=== PATIENT | female | born 1940 | race Caucasian/White ===

== ENCOUNTER 2021-01-29 09:13 | Observation (INO) ==
[2021-01-29] MEDS ORDERED: 0.9 % Sodium Chloride 1,000 ML IVC ONE (09:48)
[2021-01-29 10:30] LABS: Bilirubin,Urine Negative (Negative); Blood,Urine Negative (Negative); Clarity,Urine Clear (Clear); Color,Urine Light-Yellow (Yellow); Glucose,Urine (UA) Normal (Normal); Ketones,Urine Negative (Negative); Leukocyte Esterase,Urine Negative (Negative); Nitrite,Urine Negative (Negative); Protein,Urine Negative (Neg-Trace); Specific Gravity,Urine 1.008 (1.010-1.025); Urobilinogen,Urine Normal (Normal)
[2021-01-29 10:50] LABS: Basophils % 0.3 %; Eosinophils % 0.1 %; Hematocrit 37.4 % (35.3-44.9); Hemoglobin 12.5 g/dL (11.5-15.4); Immature Granulocytes % 0.5 % (0-4); Lymphocytes # 1.3 K/mcL (0.6-4.6); Mean Corpuscular HGB Conc 33.4 g/dL (31.6-35.5); Mean Corpuscular Hemoglobin 28.6 pg (28.0-33.3); Mean Corpuscular Volume 85.6 fL (83.0-100.0); Mean Platelet Volume 9.9 fL (9.4-12.4); Monocytes # 0.7 K/mcL (0.0-1.3); Monocytes % 8.5 %; Neutrophils # 5.8 K/mcL (1.6-8.9); Platelet Count 250 K/mcL (140-400); Red Blood Count 4.37 M/mcL (3.82-4.97); Red Cell Distribution Width 17.4 % (11.5-14.5); Segmented Neutrophils % 73.6 %; White Blood Count 7.9 K/mcL (4.3-11.1)
[2021-01-29 11:17] LABS: Alanine Aminotransferase 39 Units/L (7-52); Albumin/Globulin Ratio 2.2 (1.1-2.2); Alkaline Phosphatase 64 Units/L (34-104); Aspartate Amino Transferase 49 Units/L (13-39); BUN/Creatinine Ratio 19 (6-26); Bilirubin,Direct 0.5 mg/dL (0.0-0.2); Bilirubin,Indirect 0.9 mg/dL (0.0-1.0); Bilirubin,Total 1.4 mg/dL (0.3-1.0); Blood Urea Nitrogen 14 mg/dL (8-23); Carbon Dioxide 31 mEq/L (23-29); Chloride 84 mEq/L (98-107); Globulin 1.8 g/dL (2.4-3.5); Glucose 112 mg/dL (70-105); Magnesium 1.4 mg/dL (1.6-2.6); Osmolality,Calculated 271 (280-300); Potassium 2.6 mEq/L (3.5-5.1); Sodium 130 mEq/L (136-145); Total Protein 5.8 g/dL (6.4-8.9); Troponin I 0.03 ng/mL (< 0.04); eGFR For African Americans > 60 (> 60); eGFR For Non-African Americans > 60 (> 60)
[2021-01-29] MEDS ORDERED: Potassium Chloride Elixir 20 MEQ/15 ML UDC PO ONE (12:01)
[2021-01-29] MEDS ORDERED: Potassium Chloride 40 MEQ, Lidocaine 1% 2 ML in 0.9 % Sodium Chloride 500 ML IVPB ONE (13:30)
[2021-01-29] MEDS ORDERED: Naloxone 0.4 MG/ML INJ IVP PRN (16:32)
[2021-01-29] MEDS ORDERED: Ondansetron ODT 4 MG TAB.RAPDIS SL PRN (16:32)
[2021-01-29] MEDS ORDERED: *HR* Dextrose 50 % in Water (Syg) 50 ML SYRINGE IVP PRN (16:35)
[2021-01-29] MEDS ORDERED: Dextrose Gel 15 GM/37.5 ML TUBE PO PRN ×2 (16:35)
[2021-01-29] MEDS ORDERED: D5% in Water 1,000 ML IVC PRN (16:35)
[2021-01-29] MEDS: Insulin LISPRO 300 UNITS/3 ML VIAL SUBQ SCH ×2 (17:50→20:28)
[2021-01-29] MEDS ORDERED: traZODone 50 MG TABLET PO PRN (18:44)
[2021-01-29] MEDS: Famotidine 20 MG TABLET PO SCH (20:28)
[2021-01-29] MEDS: Apixaban 5 MG TABLET PO SCH (20:28)
[2021-01-29] MEDS: *HR* OxyCODONE/APAP 5/325 TABLET PO PRN (20:31)
[2021-01-29] MEDS ORDERED: *HR* OxyCODONE/APAP 5/325 TABLET PO ONE (22:20)
[2021-01-30 06:18] LABS: Basophils % 0.2 %; Eosinophils % 0.1 %; Hematocrit 36.4 % (35.3-44.9); Hemoglobin 11.7 g/dL (11.5-15.4); Immature Granulocytes % 0.5 % (0-4); Lymphocytes # 1.7 K/mcL (0.6-4.6); Lymphocytes % 16.5 %; Mean Corpuscular HGB Conc 32.1 g/dL (31.6-35.5); Mean Corpuscular Hemoglobin 27.3 pg (28.0-33.3); Mean Platelet Volume 11.3 fL (9.4-12.4); Monocytes % 9.7 %; Neutrophils # 7.7 K/mcL (1.6-8.9); Platelet Count 248 K/mcL (140-400); Red Blood Count 4.28 M/mcL (3.82-4.97); Red Cell Distribution Width 17.9 % (11.5-14.5); White Blood Count 10.6 K/mcL (4.3-11.1)
[2021-01-30] MEDS: *HR* OxyCODONE/APAP 5/325 TABLET PO PRN ×2 (08:14→21:06)
[2021-01-30] MEDS: Apixaban 5 MG TABLET PO SCH ×2 (08:14→21:06)
[2021-01-30] MEDS: Furosemide 40 MG TABLET PO SCH (08:14)
[2021-01-30] MEDS: Famotidine 20 MG TABLET PO SCH ×2 (08:14→21:07)
[2021-01-30] MEDS: lisinopriL 5 MG TABLET PO SCH (08:14)
[2021-01-30] MEDS: Insulin LISPRO 300 UNITS/3 ML VIAL SUBQ SCH ×4 (08:24→20:54)
[2021-01-30] MEDS ORDERED: FLUoxetine 20 MG CAPSULE PO SCH (09:00)
[2021-01-30 09:09] LABS: BUN/Creatinine Ratio 23 (6-26); Blood Urea Nitrogen 20 mg/dL (8-23); Calcium 8.8 mg/dL (8.6-10.3); Carbon Dioxide 15 mEq/L (23-29); Chloride 91 mEq/L (98-107); Glucose 154 mg/dL (70-105); Osmolality,Calculated 272 (280-300); Phosphorous 3.7 mg/dL (2.7-4.5); Potassium 4.9 mEq/L (3.5-5.1); Sodium 128 mEq/L (136-145); eGFR For African Americans > 60 (> 60); eGFR For Non-African Americans > 60 (> 60)
[2021-01-30 10:55] LABS: Estimated Average Glucose 114 mg/dl; Hemoglobin A1C 5.6 %
[2021-01-31] MEDS: Insulin LISPRO 300 UNITS/3 ML VIAL SUBQ SCH ×2 (08:36→11:44)
[2021-01-31] MEDS: Apixaban 5 MG TABLET PO SCH (08:45)
[2021-01-31] MEDS: Famotidine 20 MG TABLET PO SCH (08:45)
[2021-01-31] MEDS: lisinopriL 5 MG TABLET PO SCH (08:45)
[2021-01-31] MEDS: Furosemide 40 MG TABLET PO SCH (08:46)
[2021-01-31] MEDS ORDERED: DilTIAZem CD (24hr) 240 MG CAP.ER.24H PO SCH (09:00)
[2021-01-31 10:17] VITALS: PULSE 77; O2SAT 95
[2021-01-31 10:19] LABS: Basophils % 0.2 %; Eosinophils % 0.1 %; Hematocrit 34.5 % (35.3-44.9); Immature Granulocytes % 0.4 % (0-4); Lymphocytes # 1.1 K/mcL (0.6-4.6); Lymphocytes % 10.8 %; Mean Corpuscular HGB Conc 31.9 g/dL (31.6-35.5); Mean Corpuscular Hemoglobin 27.6 pg (28.0-33.3); Mean Corpuscular Volume 86.7 fL (83.0-100.0); Mean Platelet Volume 10.7 fL (9.4-12.4); Monocytes # 0.6 K/mcL (0.0-1.3); Neutrophils # 8.6 K/mcL (1.6-8.9); Platelet Count 213 K/mcL (140-400); Red Blood Count 3.98 M/mcL (3.82-4.97); Red Cell Distribution Width 18.1 % (11.5-14.5); Segmented Neutrophils % 82.5 %; White Blood Count 10.4 K/mcL (4.3-11.1)
[2021-01-31 11:15] LABS: Calcium 8.7 mg/dL (8.6-10.3); Magnesium 1.9 mg/dL (1.6-2.6); Phosphorous 3.6 mg/dL (2.7-4.5)
[2021-01-31 11:39] LABS: Potassium 4.1 mEq/L (3.5-5.1)
[2021-01-31 13:51] VITALS: BP 120/68; TEMP 97.3
== END 2021-01-31 15:19 | disposition home health service (06) ==
LOC: 3ANU 09:13 → EMEROOARM 09:13 → SUATTDRO 15:00 → 3ANU 16:13
PROVIDERS: ADMIT Family Medicine; ATTEND Internal Medicine